=== PATIENT | female | born 1945 | race Caucasian/White ===

== ENCOUNTER 2017-07-07 09:07 | Day surgery (SDC) | payer OTHER ==
[2017-07-07] MEDS ORDERED: LIDOCAINE 1% 2 ML INJ ID PRN (09:19)
[2017-07-07] MEDS ORDERED: LR 1,000 ML IV ONE (09:19)
--- NOTE | 2017-07-07 09:46 | PDGENHP ---
History & Physical Chief Complaint: Nausea, vomiting, dysphagia Relevant Physical Exam: GEN: NAD. Cardiac: RRR. Lungs: CTA B. Abd: Soft, nt, nd
--- NOTE | 2017-07-07 10:59 | CPEKG ---
Heart Rate: 59 RR Interval: 1017 P-R Interval: 188 QRSD Interval: 98 QT Interval: 528 QTC Interval: 524 P Union: 148 QRS Union: 54 T Wave Union: -19 EKG Severity - ABNORMAL ECG - EKG Impression: SINUS RHYTHM EKG Impression: PROBABLE INFERIOR INFARCT, AGE INDETERMINATE EKG Impression: PROLONGED QT INTERVAL Electronically Signed By: Wilmar Nathan 07-Jul-2017 12:02:04
--- NOTE | 2017-07-07 11:05 | PDANEPAE ---
ANE History of Present Illness Patient presents for EGD ANE Past Medical History - Cardiovascular History Hx Hypertension: No Hx Arrhythmias: No Hx Chest Pain: Yes Hx Coronary Artery / Peripheral Vascular Disease: No Hx CHF / Valvular Disease: Yes Cardiovascular History Comment: LOW BLOOD PRESSURE - Pulmonary History Hx COPD: No Hx Asthma/Reactive Airway Disease: No Hx Recent Upper Respiratory Infection: No Hx Oxygen in Use at Home: No Hx Sleep Apnea: No Sleep Apnea Screening Result - Last Documented: Negative Pulmonary History Comment: SEASONAL ALLERGIES - Neurologic History Hx Cerebrovascular Accident: No Hx Seizures: No Hx Dementia: Yes - Endocrine History Hx Diabetes: No Endocrine History Comment: HYPOTHYROID - Renal History Hx Renal Disorders: No - Liver History Hx Hepatic Disorders: No - Neurological & Psychiatric Hx Hx Neurological and Psychiatric Disorders: No - Cancer History Hx Cancer: No - Congenital Disorder History Hx Congenital Disorders: No - GI History Hx Gastrointestinal Disorders: Yes Gastrointestinal History Comment: N&V,BURPING,LOOSE STOOLS. HIATAL HERNIA - Chronic Pain History Chronic Pain: No - Surgical History Prior Surgeries: VALVE REPLACEMENT 2012. HYSTERECTOMY ANE Review of Systems Review of Systems: - Exercise capacity METS (RN): 2 METS ANE Patient History - Allergies Allergies/Adverse Reactions: No Known Allergies Allergy (Unverified 07/02/17 12:19) - Home Medications Home medications: home medication list seen and reviewed Home Medications: Aspirin 81mg (*) DAILY 07/02/17 [Last Taken Unknown] Atorvastatin Calcium DAILY06 07/02/17 [Last Taken Unknown] Citalopram DAILY06 07/02/17 [Last Taken Unknown] Furosemide DAILY06 07/02/17 [Last Taken Unknown] Herbal Drugs DAILY 07/02/17 [Last Taken Unknown] ISOSORBIDE DINITRATE DAILY06 07/02/17 [Last Taken Unknown] Levothyroxine DAILY06 07/02/17 [Last Taken Unknown] Lisinopril DAILY06 07/02/17 [Last Taken Unknown] Metoprolol Tartrate DAILY06 07/02/17 [Last Taken Unknown] Namenda 10 mg DAILY06 07/02/17 [Last Taken 07/07/17] - NPO status NPO Status: no food or drink >8 hours NPO Since - Liquids (Date): 07/06/17 NPO Since - Liquids (Time): 20:00 NPO Since - Solids (Date): 07/06/17 NPO Since - Solids (Time): 20:00 - Smoking Hx Smoking Status: Former smoker ANE Labs/Vital Signs - Vital Signs Blood Pressure: 114/62 Heart Rate: 65 Respiratory Rate: 16 O2 Sat (%): 95 Height: 149.86 cm Weight: 69.4 kg ANE Physical Exam - Airway Neck exam: FROM Mallampati Score: Class 2 Mouth exam: normal dental/mouth exam, poor dentition - Pulmonary Pulmonary: no respiratory distress - Cardiovascular Cardiovascular: regular rate and rhythym - ASA Status ASA Status: III ANE Anesthesia Plan Anesthesia Plan: general endotracheal anesthesia (rba discussed with )
[2017-07-07] MEDS ORDERED: PROPOFOL 200 MG/20 ML VIAL ONE (11:07)
[2017-07-07] MEDS ORDERED: LIDOCAINE 2% 5 ML SDV ONE (11:07)
[2017-07-07] MEDS ORDERED: SUCCINYLCHOLINE CHLORIDE*ANESTHESIA ONLY*200 MG/10 ML SYR IVP ONE (11:07)
[2017-07-07] MEDS ORDERED: KETAMINE 100 MG/10 ML SYR ONE (11:13)
[2017-07-07] MEDS ORDERED: ONDANSETRON 4 MG/2 ML VIAL IVP PRN (11:24)
[2017-07-07] MEDS ORDERED: NALOXONE HCL 0.4 MG/ML INJ IVP PRN (11:24)
[2017-07-07] MEDS ORDERED: ONDANSETRON 4 MG/2 ML VIAL ONE (11:27)
[2017-07-07] MEDS ORDERED: DEXAMETHASONE 4 MG/ML VIAL ONE (11:27)
--- NOTE | 2017-07-07 11:45 | GIREPORT ---
[facility] Surgical Services - Endoscopy Department Patient Name: Olive Ortiz Procedure Date: 07/07/2017 10:50 AM Patient Type: Outpatient Attending MD/ ER Physician: Shekhar Ross MD Procedure: Upper GI endoscopy Indications: Heartburn, Nausea with vomiting Providers: Shekhar Ross MD Medicines: Monitored Anesthesia Care Complications: No immediate complications. Description of Procedure: After obtaining informed consent, the endoscope was passed under direct vision. Throughout the procedure, the patient's blood pressure, pulse, and oxygen saturations were monitored continuously. The Endoscope was intro duced through the mouth, and advanced to the second part of duodenum. [facility] GI endoscopy was accomplished without difficulty. The patient tolerated th e procedure well. Findings: LA Grade B (one or more mucosal breaks greater than 5 mm, not extending between the tops of two mucosal folds) esophagitis with no bleeding was found 31 to 32 cm from the incisors. A 6mm clean based ulcer is also se en at the GE junction. Biopsies were taken with a cold forceps for histology. Verification of patient identification for the specimen was done by the physician and nurse using the patient's name and date. Estimated blood loss was minimal. A medium-sized hiatal hernia was present. Localized moderate inflammation characterized by erosions, erythema and friability was found on the greater curvature of the stomach and on the lesser curvature of the stomach. Biopsies were taken with a cold forcep s for histology. Verification of patient identification for the specimen was done by the physician and nurse using the patient's name and date. Estimated blood loss was minimal. Localized moderately erythematous mucosa without active bleeding and wi th no stigmata of bleeding was found in the duodenal bulb and in the first po rtion of the duodenum. Biopsies were taken with a cold forceps for histology. Estimated blood loss was minimal. Estimated Blood Loss: Estimated blood loss: none. Post Op Diagnosis: - LA Grade B reflux esophagitis/ 6mm esophageal ulcer. Biopsied. - Medium-sized hiatal hernia. - Gastritis. Biopsied. - Normal examined duodenum. Biopsied. Recommendation: - Discharge patient to home (with escort). - Resume previous diet. - Continue present medications. - Use Prevacid (lansoprazole) 30 mg PO daily for 2 months. - Use sucralfate tablets 1 gram PO QID for 2 weeks. - Your pathology results are available within 10 days. - Repeat EGD in 2 months to check for healing of esophagitis and esopha geal ulcer. - Thank you for allowing me to participate in the care of your patient. Attending Participation: I personally performed the entire procedure. Shekhar Ross MD Shekhar Ross MD 07/07/2017 11:45:14 AM This report has been signed electronicallyShekhar Ross MD Number of Addenda: 0 Note Initiated On: 07/07/2017 10:50 AM [email or web address]
--- NOTE | 2017-07-07 11:50 | POSTANESTH ---
Post Anesthetic Evaluation Cardiovascular Status: Normal, Stable Respiratory Status: Normal, Stable Level of Consciousness/Mental Status: Other, See Comment Pain Control: Adequate, Prn Tx Ordered Nausea/Vomiting Control: Adequate, Prn Tx Ordered Complications Possibly Related to Anesthesia: None Noted Notes: mentation as per pre-op demented.
[2017-07-07 12:44] VITALS: BP 97/56; PULSE 64; RESP 16; O2SAT 95
[2017-07-07 12:46] VITALS: TEMP 99.9
== END 2017-07-07 13:11 | disposition home or self-care (01) ==
LOC: FSGY 09:07
PROVIDERS: ATTEND Internal Medicine Gastroenterology
PROC: 0DB68ZX Excision of Stomach, Via Natural or Artificial Opening Endoscopic, Diagnostic (ICD-10-PCS; principal; 2017-07-07 10:30)
PROC: 0DB98ZX Excision of Duodenum, Via Natural or Artificial Opening Endoscopic, Diagnostic (ICD-10-PCS; principal; 2017-07-07 10:30)
PROC: 0DB48ZX Excision of Esophagogastric Junction, Via Natural or Artificial Opening Endoscopic, Diagnostic (ICD-10-PCS; principal; 2017-07-07 10:30)
DX: K20.9 Esophagitis, unspecified (principal); K22.10 Ulcer of esophagus without bleeding; K29.70 Gastritis, unspecified, without bleeding
CPT/HCPCS: J0330; J1100; J2405; J2704